=== PATIENT | male | born 1965 | race Caucasian/White ===

== ENCOUNTER 2023-07-23 12:04 | Emergency (ER) | payer BC, OTHER ==
[2023-07-23] MEDS ORDERED: Labetalol 20 MG/4 ML Syringe IVPUSH ONE ×2 (12:35→15:10)
[2023-07-23] MEDS: Sodium Chloride 0.9% 10 ML Syringe FLUSH PRN ×2 (12:38→13:23)
[2023-07-23 12:59] LABS: BASOPHILS ABSOLUTE AUTO 0.1 x10-3/uL (0.0-0.3); BASOPHILS PERCENT AUTO 0.9 % (0.3-3.8); EOSINOPHILS ABSOLUTE AUTO 0.1 x10-3/uL (0.0-0.6); EOSINOPHILS PERCENT AUTO 1.4 % (0.1-6.8); HEMATOCRIT 31.6 % (38.3-50.1); HEMOGLOBIN 10.9 g/dL (12.9-17.7); LYMPHOCYTES ABSOLUTE AUTO 1.3 x10-3/uL (0.5-4.5); MEAN CORPUSCULAR HEMOGLOBIN 28.2 pg (27.0-33.3); MEAN CORPUSCULAR HGB CONC 34.7 g/dL (28.7-35.3); MEAN CORPUSCULAR VOLUME 81.4 fL (80.8-98.7); MEAN PLATELET VOLUME 8.4 fL (6.7-11.0); MONOCYTES ABSOLUTE AUTO 0.4 x10-3/uL (0.0-1.2); MONOCYTES PERCENT AUTO 5.9 % (5.5-15.2); NEUTROPHILS ABSOLUTE AUTO 4.8 x10-3/uL (1.7-6.9); NEUTROPHILS PERCENT AUTO 71.8 % (40.3-71.8); PLATELET COUNT,PLT 82 x10(3)uL (117-477); RED BLOOD CELL COUNT 3.88 x10(6)uL (3.90-5.90); RED CELL DISTRIBUTION WIDTH 13.4 % (12.4-15.0); WHITE BLOOD CELL COUNT,WBC 6.7 x10-3/uL (3.2-10.1)
[2023-07-23 13:10] LABS: A/G RATIO 0.9; ALANINE AMINOTRANSFERASE,ALT 22 U/L (12-36); ALBUMIN 3.1 g/dL (3.5-5.2); ALKALINE PHOSPHATASE 61 IU/L (56-112); ASPARTATE AMNIOTRANSFERASE,AST 25 IU/L (5-25); BILIRUBIN TOTAL 0.6 mg/dL (0.1-1.3); BLOOD UREA NITROGEN,BUN 37 mg/dL (7-18); BUN/CREATININE RATIO 9.3 (9-20); CALCIUM 8.6 mg/dL (8.6-10.2); CARBON DIOXIDE,CO2 32 mmol/L (21-32); CHLORIDE,CL 103 mmol/L (100-110); EST CRCL DRUG DOSING (CG) 31.35 mL/min; ESTIMATED GFR 17 mL/min (>60); GLUCOSE RANDOM 187 mg/dL (80-116); PROTEIN TOTAL,TP 6.7 g/dL (6.0-8.0); SODIUM,NA 141 mmol/L (135-145)
[2023-07-23] MEDS ORDERED: amLODIPine 10 MG Tab PO STA (13:15)
[2023-07-23] MEDS ORDERED: hydrALAZINE 20 MG/ML SDV IVPUSH ONE (13:15)
[2023-07-23 13:16] LABS: INR 1.03 (1.00-1.24); POTASSIUM,K 2.7 mmol/L (3.5-5.3); PROTHROMBIN TIME 10.6 sec (9.0-11.1)
[2023-07-23 13:17] LABS: PTT,PARTIAL THROMBOPLSTIN TIME 25.7 SECONDS (24.4-33.2)
[2023-07-23] MEDS ORDERED: Potassium Chloride 10 MEQ in Premix Bag 1 BAG IV ONE ×2 (13:17→15:50)
[2023-07-23 13:18] LABS: TROPONIN I 135.7 pg/mL (4.0-60.3)
[2023-07-23] MEDS ORDERED: Sodium Chloride 0.9% 250 ML IV SCH (13:30)
[2023-07-23 14:01] LABS: HEMOGLOBIN A1C 5.2 % (<5.7)
[2023-07-23] MEDS ORDERED: cloNIDine 0.1 MG Tab PO ONE (15:10)
== END 2023-07-23 16:25 ==
LOC: SUPCPDRO 12:04 → FB.ED 12:04
DX: I16.9 Hypertensive crisis, unspecified (principal); I13.0 Hypertensive heart and chronic kidney disease with heart failure and stage 1 through stage 4 chronic kidney disease, or unspecified chronic kidney disease; N18.9 Chronic kidney disease, unspecified; I50.9 Heart failure, unspecified; D63.1 Anemia in chronic kidney disease; E87.6 Hypokalemia; I24.9 Acute ischemic heart disease, unspecified; F17.200 Nicotine dependence, unspecified, uncomplicated; E66.9 Obesity, unspecified; Z68.1 Body mass index [BMI] 19.9 or less, adult
CPT/HCPCS: 36415; 70450; 80053; 83036; 83880; 84484; 85025; 85610; 85730; 93005; 96361; 96365; 96375; 96376; 99285; A9270; J0360; J3480; J3490; J7050; 93010

== ENCOUNTER 2024-05-18 06:55 | Day surgery (SDC) | payer OTHER ==
[2024-05-18] MEDS ORDERED: Midazolam 1 MG/ML 2 ML SDV IV ONE (06:56)
[2024-05-18] MEDS ORDERED: Propofol 200 MG/20 ML SDV IV ONE (06:56)
[2024-05-18] MEDS ORDERED: Sodium Chloride 0.9% 10 ML Syringe FLUSH PRN (07:00)
[2024-05-18] MEDS: Lactated Ringers 1,000 ML IV SCH (07:47)
[2024-05-18] MEDS: Simethicone Drops 40 MG/0.6 ML 30 ML Bottle ONE (08:04)
== END 2024-05-18 09:40 | disposition home or self-care (01) ==
LOC: FB.SDS 06:55
PROVIDERS: ATTEND Surgery
DX: Z12.11 Encounter for screening for malignant neoplasm of colon (principal); D12.6 Benign neoplasm of colon, unspecified; K57.30 Diverticulosis of large intestine without perforation or abscess without bleeding; I12.9 Hypertensive chronic kidney disease with stage 1 through stage 4 chronic kidney disease, or unspecified chronic kidney disease; N18.30 Chronic kidney disease, stage 3 unspecified; Z79.899 Other long term (current) drug therapy
CPT/HCPCS: 45384; 45385; 88305; A9270; J2250; J2704; J7120; 00811